=== PATIENT | male | born 2000 | race African-American/Black ===

== ENCOUNTER 2020-11-13 21:23 | Emergency (ER) | payer SELFPAY ==
[~2020-11-13] VITALS: Ht 172.7 cm; Wt 70.0 kg
[2020-11-13 21:47] VITALS: BP 120/83
== END 2020-11-13 21:59 | disposition home or self-care (01) ==
LOC: ER 21:23
DX: F41.1 Generalized anxiety disorder (principal)
CPT/HCPCS: 99283